=== PATIENT | female | born 1995 | race Caucasian/White ===

== ENCOUNTER 2022-07-10 15:37 | Outpatient (CLI) | payer BC, SELFPAY ==
[2022-07-10 19:25] LABS: Kit Draw Collected
== END 2022-07-10 15:38 | disposition home or self-care (01) ==
LOC: ANHGOSHLAB 15:39
PROVIDERS: PCP Internal Medicine; Visit Provider Clinical Nurse Specialist
DX: R53.83 Other fatigue (principal); Z13.228 Encounter for screening for other metabolic disorders
CPT/HCPCS: 36415